=== PATIENT | female | born 1955 | race Caucasian/White ===

== ENCOUNTER 2019-06-15 11:32 | Emergency (ER) | payer OTHER ==
[~2019-06-15] VITALS: Ht 182.9 cm; Wt 98.4 kg
[2019-06-15] MEDS ORDERED: CLARITIN10 M1 PO (16:59)
[2019-06-15] MEDS ORDERED: BACTRIM DS TAB1 EACH PO (16:59)
== END 2019-06-15 17:05 | disposition home or self-care (01) ==
LOC: ER 11:32
DX: N39.0 Urinary tract infection, site not specified (principal); B33.8 Other specified viral diseases; B96.0 Mycoplasma pneumoniae [M. pneumoniae] as the cause of diseases classified elsewhere; R50.9 Fever, unspecified

== ENCOUNTER 2019-08-07 11:37 | Outpatient (CLI) | payer OTHER ==
[~2019-08-07 11:37] MED LIST: BACTRIM DS TAB1 EACH PO; CLARITIN10 M1 PO
== END 2019-08-07 11:45 | disposition home or self-care (01) ==
LOC: LAB 11:37
DX: D12.2 Benign neoplasm of ascending colon (principal); C18.7 Malignant neoplasm of sigmoid colon

== ENCOUNTER 2019-08-10 08:00 | Outpatient (CLI) | payer OTHER | END 2019-08-10 15:00 | disposition home or self-care (01) | LOC: EKG 08:00 | DX: I10 Essential (primary) hypertension (principal) ==

== ENCOUNTER 2020-04-08 07:21 | Emergency (ER) | payer OTHER ==
[~2020-04-08] VITALS: Ht 182.9 cm; Wt 90.7 kg
[2020-04-08] MEDS ORDERED: NORFLEX100MG PO (10:28)
[2020-04-08] MEDS ORDERED: KETO10TA2 PO (10:28)
== END 2020-04-08 10:49 | disposition home or self-care (01) ==
LOC: ER 07:21
DX: M54.2 Cervicalgia (principal)

== ENCOUNTER → 2020-06-26 09:36 | Outpatient (CLI) | payer OTHER ==
[~2020-06-26 09:36] MED LIST changes: +KETO10TA2 PO; +NORFLEX100MG PO
== END | disposition home or self-care (01) ==
LOC: LAB 09:36
PROVIDERS: ATTEND Internal Medicine Hematology & Oncology
DX: D70.0 Congenital agranulocytosis (principal); D63.8 Anemia in other chronic diseases classified elsewhere; M13.80 Other specified arthritis, unspecified site

== ENCOUNTER 2020-06-30 09:41 | Outpatient (CLI) | payer OTHER | END 2020-06-30 09:49 | disposition home or self-care (01) | LOC: MAMO-SONO 09:41 | PROVIDERS: ATTEND Specialist | DX: Z12.31 Encounter for screening mammogram for malignant neoplasm of breast (principal) ==

== ENCOUNTER 2020-07-04 12:36 | Outpatient (CLI) | payer OTHER | END 2020-07-04 12:46 | disposition home or self-care (01) | LOC: SONOGRAMA 12:36 | PROVIDERS: ATTEND Specialist | DX: Z12.31 Encounter for screening mammogram for malignant neoplasm of breast (principal) ==

== ENCOUNTER 2020-07-15 11:27 | Outpatient (CLI) | payer OTHER | END 2020-07-15 11:46 | disposition home or self-care (01) | LOC: NUCLEAR 11:27 | PROVIDERS: ATTEND Internal Medicine Hematology & Oncology | DX: M13.80 Other specified arthritis, unspecified site (principal) | CPT/HCPCS: 78802; A9556 ==

== ENCOUNTER 2020-10-25 08:35 | Outpatient (CLI) | payer OTHER | END 2020-10-25 08:39 | disposition home or self-care (01) | LOC: RAD 08:35 | PROVIDERS: ATTEND Specialist | DX: J45.998 Other asthma (principal) ==

== ENCOUNTER → 2020-12-13 08:44 | Outpatient (CLI) | payer OTHER | END | disposition home or self-care (01) | LOC: LAB 08:44 | DX: D70.0 Congenital agranulocytosis (principal); D63.8 Anemia in other chronic diseases classified elsewhere; M13.80 Other specified arthritis, unspecified site ==

== ENCOUNTER 2020-12-24 07:16 | Outpatient (CLI) | payer OTHER | END 2020-12-24 10:11 | disposition home or self-care (01) | LOC: MRI 07:16 | DX: R93.5 Abnormal findings on diagnostic imaging of other abdominal regions, including retroperitoneum (principal) | CPT/HCPCS: 72196 ==

== ENCOUNTER 2022-10-05 11:20 | Outpatient (CLI) | payer OTHER ==
[~2022-10-05 11:20] MED LIST changes: +EZETIMIBE10 MG PO; +FOLIC ACID1 MG PO; +PANTOPRAZOLE SO20 MG PO; +SIMVASTATIN40 MG PO; +VITAMIN B-121000 MCG PO
== END 2022-10-05 11:23 | disposition home or self-care (01) ==
LOC: LAB 11:20
PROVIDERS: ATTEND Specialist
DX: E03.8 Other specified hypothyroidism (principal); E11.69 Type 2 diabetes mellitus with other specified complication; N39.9 Disorder of urinary system, unspecified; D64.89 Other specified anemias; Z13.220 Encounter for screening for lipoid disorders; M00.80 Arthritis due to other bacteria, unspecified joint; E11.21 Type 2 diabetes mellitus with diabetic nephropathy; R19.5 Other fecal abnormalities; C18.6 Malignant neoplasm of descending colon

== ENCOUNTER 2022-10-26 07:50 | Outpatient (CLI) | payer OTHER | END 2022-10-26 08:03 | disposition home or self-care (01) | LOC: SONOGRAMA 07:50 | PROVIDERS: ATTEND Internal Medicine Gastroenterology | DX: R10.9 Unspecified abdominal pain (principal) ==

== ENCOUNTER 2022-11-08 07:15 | Outpatient (CLI) | payer OTHER | END 2022-11-08 07:21 | disposition home or self-care (01) | LOC: TOM 07:15 | PROVIDERS: ATTEND Internal Medicine Gastroenterology | DX: C18.6 Malignant neoplasm of descending colon (principal) | CPT/HCPCS: 74177; Q9965 ==

== ENCOUNTER 2023-02-07 08:43 | Outpatient (CLI) | payer OTHER | END 2023-02-07 08:51 | disposition home or self-care (01) | LOC: RAD 08:43 | PROVIDERS: ATTEND Internal Medicine Gastroenterology | DX: R10.9 Unspecified abdominal pain (principal) ==

== ENCOUNTER 2023-03-01 07:27 | Outpatient (CLI) | payer OTHER | END 2023-03-01 07:34 | disposition home or self-care (01) | LOC: RX STUDY 07:27 | PROVIDERS: ATTEND Surgery | DX: Z86.010 Personal history of colon polyps (principal); K66.0 Peritoneal adhesions (postprocedural) (postinfection) ==

== ENCOUNTER 2023-10-01 18:39 | Emergency (ER) | payer OTHER ==
[~2023-10-01] VITALS: Ht 198.1 cm; Wt 49.9 kg
[2023-10-01 19:27] LABS: MEAN CELL VOLUME 85.1 fL (80.00-100.00); MEAN CORPUSCULAR HGB CONC 32.8 g/dl (32.0-36.0); PLATELET COUNT 212 K/uL (150-450); RED BLOOD COUNT 3.17 M/uL (4.00-6.00); RED CELL DISTRIBUTION WIDTH 15.6 % (11.5-14.5)
[2023-10-01 19:30] LABS: HEMOGLOBIN 8.9 g/dL (12.0-15.00)
[2023-10-01 19:36] LABS: INR 1.11; PARTIAL THROMBOPLASTIN TIME 24.6 SECONDS (22.0-34.0); PROTHROMBIN TIME 11.6 SECONDS (9.0-11.5)
[2023-10-01 19:41] LABS: ALBUMIN 3.3 gm/dL (3.4-5.0); BILIRUBIN TOTAL 0.37 mg/dL (0.3-1.2); CALCIUM 8.9 mg/dL (8.5-10.1); CREATININE SERUM 0.79 mg/dL (0.55-1.02); GFR 72.16; GLOBULINA 4.1 G/DL (2.4-3.5); POTASSIUM 4.06 mEq/L (3.5-5.1); TOTAL PROTEIN 7.4 gm/dL (6.4-8.2)
[2023-10-01 20:26] LABS: PH,URINE 5.5 (5.0-8.0); URINE APPEARANCE Clear; URINE BILIRRUBIN Negative (NEGATIVE); URINE BLOOD Negative; URINE COLOR Dark Yellow; URINE GLUCOSE Negative (NEGATIVE); URINE LEUKOCYTE Trace; URINE NITRATE Negative; URINE PROTEIN Trace (NEGATIVE)
[2023-10-01 20:29] LABS: URINE BACTERIA 934.8 uL (0.0-1933); URINE EPITHELIAL CELLS 57.1 uL (0.0-38.8); URINE RBC 20.9 uL (0.0-20.8); URINE WBC 18.3 uL (0.0-23.2)
[2023-10-01 20:42] LABS: ABG PH 7.428 (7.35-7.45); ABG PO2 85.5 mmHg (80-100); ABG pCO2 41.4 mmHg (35-45); BASE EXCESS 2.1 mmol/l; BICARBONATE 26.7 mmol/l (23-25); SaO2 96.8 %; allen test SATISFACTORY; puncture site RADIAL RIGHT
[2023-10-01 20:43] LABS: o2 21 %
[2023-10-01 21:13] LABS: URINE MUCUS MODERATE
== END 2023-10-01 23:23 | disposition home or self-care (01) ==
LOC: ER 18:39
PROVIDERS: General Practice
DX: R55 Syncope and collapse (principal); E78.49 Other hyperlipidemia; Z20.822 Contact with and (suspected) exposure to COVID-19

== ENCOUNTER → 2023-10-07 08:26 | Outpatient (CLI) | payer OTHER ==
[2023-10-07 10:05] LABS: % SATURACION 32.3 % (15-50); FERRITIN 255.8 NG/ML (8-252)
[2023-10-07 11:20] LABS: FOLIC ACID > 20.00 ng/ml (4.78-20)
[2023-10-08 10:07] LABS: CA 125 13.9 U/mL (0.0-38.1); CA 15-3 12.8 U/mL (0.0-25.0)
== END | disposition home or self-care (01) ==
LOC: LAB 08:26
PROVIDERS: ATTEND Internal Medicine Hematology & Oncology
DX: D50.8 Other iron deficiency anemias (principal); C50.919 Malignant neoplasm of unspecified site of unspecified female breast; R97.8 Other abnormal tumor markers; C25.9 Malignant neoplasm of pancreas, unspecified; C56.9 Malignant neoplasm of unspecified ovary; R97.1 Elevated cancer antigen 125 [CA 125]; R97.0 Elevated carcinoembryonic antigen [CEA]

== ENCOUNTER 2023-10-18 08:48 | Outpatient (CLI) | payer OTHER ==
[~2023-10-18 08:48] MED LIST changes: +FEOSOL325 MG PO; +INTESTINEX680 M1 PO; +PENTOXIFYLLINE400 MG PO; +ULTRACET PO
== END 2023-10-18 08:51 | disposition home or self-care (01) ==
LOC: MAMO-SONO 08:48
PROVIDERS: ATTEND Internal Medicine Hematology & Oncology
DX: C18.6 Malignant neoplasm of descending colon (principal); E78.2 Mixed hyperlipidemia; Z12.31 Encounter for screening mammogram for malignant neoplasm of breast; N63.0 Unspecified lump in unspecified breast; N64.4 Mastodynia

== ENCOUNTER → 2023-11-22 09:16 | Outpatient (CLI) | payer OTHER ==
[2023-11-22 10:00] LABS: HEMATOCRIT 32.6 % (36.0-45.00); HEMOGLOBIN 10.7 g/dL (12.0-15.00); MEAN CELL VOLUME 85.5 fL (80.00-100.00); MEAN CORPUSCULAR HEMOGLOBIN 28.1 pg (27.00-32.0); MEAN CORPUSCULAR HGB CONC 32.9 g/dl (32.0-36.0); PLATELET COUNT 191 K/uL (150-450); RED BLOOD COUNT 3.82 M/uL (4.00-6.00); RED CELL DISTRIBUTION WIDTH 15.5 % (11.5-14.5)
[2023-11-22 10:19] LABS: ALBUMIN 3.9 gm/dL (3.4-5.0); BILIRUBIN TOTAL 0.35 mg/dL (0.3-1.2); CALCIUM 9.6 mg/dL (8.5-10.1); CREATININE SERUM 0.64 mg/dL (0.55-1.02); GFR 91.74; GLOBULINA 3.9 G/DL (2.4-3.5); POTASSIUM 3.74 mEq/L (3.5-5.1); TOTAL PROTEIN 7.8 gm/dL (6.4-8.2)
[2023-11-22 14:08] LABS: FOLIC ACID > 20.00 ng/ml (4.78-20)
[2023-11-23 08:03] LABS: MANUAL PLATELET COUNT 266
[2023-11-23 08:04] LABS: PLATELET ESTIMATE NORMAL (NORMAL)
== END | disposition home or self-care (01) ==
LOC: LAB 09:16
PROVIDERS: ATTEND Internal Medicine Hematology & Oncology
DX: D50.8 Other iron deficiency anemias (principal); R79.9 Abnormal finding of blood chemistry, unspecified; I10 Essential (primary) hypertension; R74.02 Elevation of levels of lactic acid dehydrogenase [LDH]; K76.89 Other specified diseases of liver; R97.0 Elevated carcinoembryonic antigen [CEA]; R97.8 Other abnormal tumor markers; C18.6 Malignant neoplasm of descending colon; E78.2 Mixed hyperlipidemia

== ENCOUNTER 2024-05-01 08:20 | Emergency (ER) | payer OTHER ==
[~2024-05-01] VITALS: Ht 182.9 cm; Wt 79.4 kg
[2024-05-01] MEDS ORDERED: HYDROCODONE/CHLORPHEN P-STIREX 5 ML ML PO STA (09:00)
[2024-05-01] MEDS ORDERED: GUAIFENESIN/DEXTROMETHORPHAN 5ML BLIST.PACK PO ONE (09:05)
== END 2024-05-01 09:09 | disposition home or self-care (01) ==
LOC: ER 08:22
DX: R05.8 Other specified cough (principal); I10 Essential (primary) hypertension; J40 Bronchitis, not specified as acute or chronic

== ENCOUNTER 2024-12-01 14:39 | Emergency (ER) | payer OTHER ==
[~2024-12-01] VITALS: Ht 188 cm; Wt 81.6 kg
[2024-12-01] MEDS ORDERED: ACETAMINOPHEN 500 MG GEL..CAP PO STA (17:37)
[2024-12-01] MEDS ORDERED: KETOROLAC TROMETHAMINE 60 MG VIAL IM STA (17:37)
== END 2024-12-01 19:42 | disposition home or self-care (01) ==
LOC: ER 14:42
DX: S93.491A Sprain of other ligament of right ankle, initial encounter (principal); X58.XXXA Exposure to other specified factors, initial encounter; Y93.89 Activity, other specified; Y92.89 Other specified places as the place of occurrence of the external cause; Y99.8 Other external cause status
CPT/HCPCS: 73610; 73630; 96372; 99283; J1885

== ENCOUNTER 2024-12-31 08:23 | Outpatient (CLI) | payer OTHER ==
[2024-12-31 09:16] LABS: HEMATOCRIT 33.2 % (36.0-45.00); HEMOGLOBIN 10.9 g/dL (12.0-15.00); MEAN CELL VOLUME 88.8 fL (80.00-100.00); MEAN CORPUSCULAR HEMOGLOBIN 29.2 pg (27.00-32.0); MEAN CORPUSCULAR HGB CONC 32.9 g/dl (32.0-36.0); PLATELET COUNT 202 K/uL (150-450); RED BLOOD COUNT 3.74 M/uL (4.00-6.00)
[2024-12-31 09:17] LABS: PH,URINE 6.5 (5.0-8.0); URINE APPEARANCE Clear; URINE BILIRRUBIN Negative (NEGATIVE); URINE BLOOD Negative; URINE COLOR Yellow; URINE GLUCOSE Negative (NEGATIVE); URINE KETONE Negative (NEGATIVE); URINE LEUKOCYTE Small; URINE NITRATE Negative; URINE PROTEIN Negative (NEGATIVE)
[2024-12-31 09:21] LABS: URINE BACTERIA 554.3 uL (0.0-1933); URINE EPITHELIAL CELLS 12.6 uL (0.0-38.8); URINE RBC 9.7 uL (0.0-20.8)
[2024-12-31 09:26] LABS: URINE CAST 0.44 uL (0.0-1.40)
[2024-12-31 09:38] LABS: ERYTHROCYTE SEDIMENTATION RATE 30 mm/hr
[2024-12-31 10:13] LABS: ALBUMIN 3.8 gm/dL (3.4-5.0); BILIRUBIN TOTAL 0.45 mg/dL (0.3-1.2); CALCIUM 9.2 mg/dL (8.5-10.1); CHOL HDL RATIO 2.5 (0-5.0); CREATININE SERUM 0.72 mg/dL (0.55-1.02); FREE TRIODOTIRONINE 2.61 pg/ml (2.18-3.98); GFR 79.85; GLOBULINA 3.5 G/DL (2.4-3.5); PLATELET ESTIMATE NORMAL (NORMAL); POTASSIUM 4.21 mEq/L (3.5-5.1); T4 FREE 1.03 NG/ML (0.76-1.46); TOTAL PROTEIN 7.3 gm/dL (6.4-8.2); TSH 0.844 uIU/mL (0.358-3.74)
[2024-12-31 12:57] LABS: FOLIC ACID > 20.00 ng/ml (4.78-20); VITAMIN D3 25 HYDROXY 42.71 ng/ml (30-120)
== END 2024-12-31 08:30 | disposition home or self-care (01) ==
LOC: LAB 08:23
PROVIDERS: ATTEND Specialist
DX: E03.9 Hypothyroidism, unspecified (principal); E11.21 Type 2 diabetes mellitus with diabetic nephropathy; N39.9 Disorder of urinary system, unspecified; E78.2 Mixed hyperlipidemia; E11.65 Type 2 diabetes mellitus with hyperglycemia; Z12.11 Encounter for screening for malignant neoplasm of colon; D64.9 Anemia, unspecified; E55.9 Vitamin D deficiency, unspecified; M35.3 Polymyalgia rheumatica; R41.0 Disorientation, unspecified; R41.3 Other amnesia; D51.9 Vitamin B12 deficiency anemia, unspecified; C18.9 Malignant neoplasm of colon, unspecified

== ENCOUNTER 2024-12-31 09:55 | Outpatient (CLI) | payer OTHER | END 2024-12-31 10:00 | disposition home or self-care (01) | LOC: MRI 09:55 | DX: R41.0 Disorientation, unspecified (principal); R41.3 Other amnesia; E16.2 Hypoglycemia, unspecified; G40.409 Other generalized epilepsy and epileptic syndromes, not intractable, without status epilepticus | CPT/HCPCS: 70551 ==

== ENCOUNTER 2025-01-02 11:49 | Outpatient (CLI) | payer OTHER ==
[2025-01-02 12:32] LABS: ob POSITIVE (NEGATIVE)
== END 2025-01-02 11:51 | disposition home or self-care (01) ==
LOC: LAB 11:49
PROVIDERS: ATTEND Specialist
DX: E03.9 Hypothyroidism, unspecified (principal); E11.21 Type 2 diabetes mellitus with diabetic nephropathy; N39.9 Disorder of urinary system, unspecified; E78.2 Mixed hyperlipidemia; E11.65 Type 2 diabetes mellitus with hyperglycemia; Z12.11 Encounter for screening for malignant neoplasm of colon; D64.9 Anemia, unspecified; E55.9 Vitamin D deficiency, unspecified; M35.3 Polymyalgia rheumatica